=== PATIENT | female | born 1995 | race Two or more races ===

== ENCOUNTER 2021-08-03 12:26 | Inpatient (IN) | payer OTHER ==
[~2021-08-03] VITALS: Ht 167.6 cm; Wt 2.7 kg
[2021-08-05] MEDS ORDERED: PRENATAL + DHA1 EAC1 PO (08:37)
== END 2021-08-06 17:36 | disposition home or self-care (01) | DRG 788 ==
LOC: OB/GYN 12:26 → EDBD 12:26 → LDR 12:26 → OB/GYN 17:34
PROVIDERS: Obstetrics & Gynecology; ADMIT Obstetrics & Gynecology; ATTEND Obstetrics & Gynecology
PROC: 4A1HXFZ Monitoring of Products of Conception, Cardiac Rhythm, External Approach (ICD-10-PCS; 2021-08-03)
PROC: 10D00Z1 Extraction of Products of Conception, Low, Open Approach (ICD-10-PCS; principal; 2021-08-03 15:00)
DX: O82 Encounter for cesarean delivery without indication (principal); Z37.0 Single live birth; Z3A.39 39 weeks gestation of pregnancy